=== PATIENT | female | born 1985 | race Caucasian/White ===

== ENCOUNTER 2023-11-10 07:09 | Emergency (ER) | payer MEDICAID ==
[~2023-11-10] VITALS: Ht 165.1 cm; Wt 70.0 kg
[2023-11-10 07:20] VITALS: O2SAT 99
[2023-11-10] MEDS ORDERED: ALBUTEROL (0.083%) 2.5MG/3ML NEB HHN STA (08:26)
[2023-11-10] MEDS: PREDNISONE 20MG TABLET PO STA (09:05)
[2023-11-10] MEDS ORDERED: ALBU6.7H15 INH (10:07)
[2023-11-10] MEDS ORDERED: P50 MT (10:07)
[2023-11-10 10:33] VITALS: BP 134/80; PULSE 100; RESP 26; TEMP 98.4
== END 2023-11-10 10:37 | disposition home or self-care (01) ==
LOC: ER 07:09
DX: J45.901 Unspecified asthma with (acute) exacerbation (principal)
CPT/HCPCS: 99283; 71045; 93005; J7512